=== PATIENT | male | born 1995 | race Caucasian/White ===

== ENCOUNTER 2018-05-12 22:38 | Emergency (ER) | payer SELFPAY ==
[~2018-05-12] VITALS: Ht 177.8 cm; Wt 78.2 kg
[~2018-05-12 22:38] MED LIST: NOHOMEMEDS
[2018-05-13 01:28] LABS: BASOPHIL (%) 0.4 % (0-1); EOSINOPHIL (%) 2.1 % (0-5); EOSINOPHIL COUNT 0.2 K/uL (0-0.3); HEMATOCRIT 38.7 % (38.0-50.0); HEMOGLOBIN 13.3 G/DL (12.5-16.6); IMMATURE GRANULOCYTE (%) 0.4 % (0.0-0.7); LYMPHOCYTE (%) 41.1 % (15-42); LYMPHOCYTE COUNT 3.2 K/uL (1.0-2.8); MCH 29.9 PG (29.0-34.0); MCHC 34.4 G/DL (30.0-36.0); MONOCYTE (%) 10.9 % (3-12); MONOCYTE COUNT 0.9 K/uL (0-0.8); NEUTROPHIL (%) 45.1 % (45-76); NEUTROPHIL COUNT 3.5 K/uL (1.8-6.4); PLATELET COUNT 267 K/uL (156-360); RBC DIS.WIDTH-CV 12.1 % (11.8-14.6); RBC DIS.WIDTH-SD 38.9 % (39-53); RED BLOOD COUNT 4.45 M/uL (4.00-5.50); WHITE BLOOD COUNT 7.8 K/uL (4.1-10.2)
[2018-05-13 01:39] LABS: CHLORIDE 107 mEq/L (99-109); POTASSIUM 3.9 mEq/L (3.7-5.4); SODIUM 142 mEq/L (136-147)
[2018-05-13 01:41] LABS: GLUCOSE 94 mg/dL (70-99)
[2018-05-13 01:44] LABS: GFR ESTIMATE (CALCULATED) > 59 mL/min/ (58.99-99999)
[2018-05-13 01:45] LABS: UREA NITROGEN (BUN) 12 mg/dL (9-23)
[2018-05-13] MEDS ORDERED: VALTREX1000 MG PO (04:13)
[2018-05-13] MEDS ORDERED: BACTRIM,SEPT1 TABLET PO (04:13)
[2018-05-13] MEDS ORDERED: KEFLEX500 MG PO (04:13)
[2018-05-13] MEDS ORDERED: NORCO 7.5/321 TABLET PO (04:14)
[2018-05-13] MEDS ORDERED: MOTRIN800 MG PO (04:14)
[2018-05-13 04:31] VITALS: BP 134/73
== END 2018-05-13 04:32 | disposition home or self-care (01) ==
LOC: EME 22:38
PROVIDERS: Physician Assistant
DX: B00.9 Herpesviral infection, unspecified (principal); F41.9 Anxiety disorder, unspecified; J45.909 Unspecified asthma, uncomplicated; Z88.0 Allergy status to penicillin
CPT/HCPCS: 70487; 80048; 83605; 85025; 87040; 99281; 99285; J0696; J3370; J7030